=== PATIENT | male | born 1985 | race Caucasian/White ===

== ENCOUNTER 2018-08-25 12:15 | Emergency (ER) | payer OTHER ==
--- NOTE | 2018-08-25 12:43 | EDPHY ---
H & P Stated Complaint: Vomiting, abd pain since last night Time Seen by Provider: 08/25/18 12:28 HPI/ROS: CHIEF COMPLAINT: Epigastric pain, vomiting, scant hematemesis HISTORY OF PRESENT ILLNESS: Patient presents to the ED with epigastric pain and vomiting that began last night. During his last 2 episodes of emesis he is noted scant hematemesis. The patient denies any NSAID usage. He denies history of melena. He denies prior history of significant abdominal pathology. The patient used to be a heavy drinker 2 years ago but has not had alcohol since that time. The patient takes no regular medications. He denies any diarrhea. He has felt somewhat constipated. His epigastric pain is improved somewhat prior to arrival. REVIEW OF SYSTEMS: A comprehensive 10 point review of systems is otherwise negative aside from elements mentioned in the history of present illness. Source: Patient Exam Limitations: No limitations - Personal History Current Tetanus Diphtheria and Acellular Pertussis (TDAP): Yes Tetanus Vaccine Date: 2011 - Medical/Surgical History Hx Asthma: No Hx Chronic Respiratory Disease: No Hx Diabetes: No Hx Cardiac Disease: No Hx Renal Disease: No Hx Cirrhosis: No Hx Alcoholism: No Hx HIV/AIDS: No Hx Splenectomy or Spleen Trauma: No Other PMH: surgery-hernia - Social History Smoking Status: Never smoked - Physical Exam Exam: General Appearance: Alert, no distress Eyes: Pupils equal and round no pallor or injection ENT, Mouth: Mucous membranes moist Respiratory: There are no retractions, lungs are clear to auscultation Cardiovascular: Regular rate and rhythm Gastrointestinal: Minimal epigastric tenderness to palpation Neurological: 5/5 strength noted all 4 extremities Skin: Warm and dry, no rashes Musculoskeletal: Neck is supple nontender Extremities: symmetrical, full range of motion Constitutional: Initial Vital Signs Temperature (C) 36.6 C 08/25/18 12:18 Heart Rate 61 08/25/18 12:18 Respiratory Rate 16 08/25/18 12:18 Blood Pressure 121/63 H 08/25/18 12:18 O2 Sat (%) 96 08/25/18 12:18 O2 Delivery Mode Room Air Allergies/Adverse Reactions: iodine Allergy (Verified 08/25/18 12:17) Penicillins Allergy (Verified 08/25/18 12:17) Home Medications: Medication Instructions Recorded Miscellaneous Medical Supply [NO 1 ea MISC AD 04/15/12 HOME MEDS] Ondansetron Odt [Zofran Odt] 4 mg PO Q4PRN PRN #20 tab 08/25/18 Ranitidine HCl 150 mg PO BID #60 tablet 08/25/18 Medical Decision Making ED Course/Re-evaluation: Patient presents the ED after vomiting with a scant amount of hematemesis likely consistent with a small Tasha-Kline tear. The patient's abdominal examination is benign. His laboratory studies are all within normal limits. The patient had an IV established. He was treated with IV fluids and Zofran. He was also given a GI cocktail. I re-evaluated the patient at 2:30 p.m. And he is feeling much better. He would like to be discharged home. The patient will be started on ranitidine and advised to take Zofran as needed. He should certainly return to the emergency department for markedly worsening abdominal pain, vomiting, melena or more significant hematemesis. The patient has been referred to Gastroenterology for any ongoing mild symptoms. Differential Diagnosis: Differential diagnosis considered includes gastritis, Tasha-Kline tear, peptic ulcer disease, gastroenteritis, pancreatitis - Data Points Laboratory Results: Laboratory Results 08/25/18 12:30 08/25/18 12:30 08/25/18 08/25/18 08/25/18 12:30 12:30 12:30 WBC 13.14 10^3/uL H 10^3/uL (3.80-9.50) RBC 5.34 10^6/uL 10^6/uL (4.40-6.38) Hgb 15.5 g/dL g/dL (13.7-17.5) Hct 45.0 % % (40.0-51.0) MCV 84.3 fL fL (81.5-99.8) MCH 29.0 pg pg (27.9-34.1) MCHC 34.4 g/dL g/dL (32.4-36.7) RDW 13.0 % % (11.5-15.2) Plt Count 284 10^3/uL 10^3/uL (150-400) MPV 9.4 fL fL (8.7-11.7) Neut % (Auto) 74.6 % H % (39.3-74.2) Lymph % (Auto) 19.0 % % (15.0-45.0) [place] % (Auto) 5.3 % % (4.5-13.0) Eos % (Auto) 0.3 % L % (0.6-7.6) Baso % (Auto) 0.5 % % (0.3-1.7) Nucleat RBC Rel Count 0.0 % % (0.0-0.2) Absolute Neuts (auto) 9.80 10^3/uL H 10^3/uL (1.70-6.50) Absolute Lymphs (auto) 2.50 10^3/uL 10^3/uL (1.00-3.00) Absolute Monos (auto) 0.70 10^3/uL 10^3/uL (0.30-0.80) Absolute Eos (auto) 0.04 10^3/uL 10^3/uL (0.03-0.40) Absolute Basos (auto) 0.06 10^3/uL 10^3/uL (0.02-0.10) Absolute Nucleated RBC 0.00 10^3/uL 10^3/uL (0-0.01) Immature Gran % 0.3 % % (0.0-1.1) Immature Gran # 0.04 10^3/uL 10^3/uL (0.00-0.10) PT 13.6 SEC SEC (12.0-15.0) INR 1.08 (0.83-1.16) APTT 28.1 SEC SEC (23.0-38.0) Sodium 138 mEq/L mEq/L (135-145) Potassium 4.3 mEq/L mEq/L (3.5-5.2) Chloride 107 mEq/L mEq/L (97-110) Carbon Dioxide 21 mEq/l L mEq/l (22-31) Anion Gap 10 mEq/L mEq/L (6-14) BUN 15 mg/dL mg/dL (7-23) Creatinine 0.9 mg/dL mg/dL (0.7-1.3) Estimated GFR > 60 Glucose 85 mg/dL mg/dL (70-100) Calcium 10.2 mg/dL mg/dL (8.5-10.4) Total Bilirubin 0.7 mg/dL mg/dL (0.1-1.4) Conjugated Bilirubin 0.3 mg/dL mg/dL (0.0-0.5) Unconjugated Bilirubin 0.4 mg/dL mg/dL (0.0-1.1) AST 28 IU/L IU/L (17-59) ALT 33 IU/L IU/L (21-72) Alkaline Phosphatase 59 IU/L IU/L (38-126) Total Protein 7.7 g/dL g/dL (6.3-8.2) Albumin 4.7 g/dL g/dL (3.5-5.0) Lipase 76 IU/L IU/L (23-300) Medications Given: Discontinued Medications Al Hydroxide/Mg Hydroxide (Maalox Susp) 30 ml PO ONCE ONE Stop: 08/25/18 13:09 Last Admin: 08/25/18 13:12 Dose: 30 ml Hyoscyamine Sulfate (Levsin, Hyomax-Sl) 0.25 mg PO ONCE ONE Stop: 08/25/18 13:09 Last Admin: 08/25/18 13:12 Dose: 0.25 mg Lidocaine (Lidocaine 2% Viscous) 15 ml PO ONCE ONE Stop: 08/25/18 13:09 Last Admin: 08/25/18 13:12 Dose: 15 ml Departure - Departure Disposition: Home, Routine, Self-Care Clinical Impression: Abdominal pain Condition: Good Instructions: Gastritis (ED) Additional Instructions: 1. Zofran as needed for nausea and vomiting. 2. Please begin ranitidine 150 mg twice a day. 3. Please return to the ED for markedly worsening symptoms, black or tarry stools, increasing pain or other concerns. 4. You have been given the number of our on-call recordak operator for any ongoing mild symptoms. Referrals: Cholo Aquino MD [Medical Doctor] - As per Instructions Prescriptions: Ondansetron Odt [Zofran Odt] 4 mg PO Q4PRN PRN #20 tab PRN Reason: For Nausea Ranitidine HCl 150 mg PO BID #60 tablet
[2018-08-25 12:46] LABS: PLATELET COUNT 284 10^3/uL (150-400)
[2018-08-25] MEDS ORDERED: HYOSCYAMINE SULFATE 0.125 MG TAB PO ONE (13:08)
[2018-08-25] MEDS ORDERED: LIDOCAINE 2% VISCOUS 15 ML UDCUP PO ONE (13:08)
[2018-08-25] MEDS ORDERED: MAG HYDROX/AL HYDROX/SIMETH 30 ML UDCUP PO ONE (13:08)
[2018-08-25 13:13] LABS: INR 1.08 (0.83-1.16); PROTIME(PATIENT) 13.6 SEC (12.0-15.0)
[2018-08-25 14:16] VITALS: BP 117/75
== END 2018-08-25 14:30 | disposition home or self-care (01) ==
DX: R10.13 Epigastric pain (principal); R11.2 Nausea with vomiting, unspecified